=== PATIENT | female | born 1955 | race Caucasian/White ===

== ENCOUNTER 2019-04-29 03:49 | Observation (INO) | payer MEDICARE ==
--- NOTE | 2019-04-29 04:09 | Emergency Department Report ---
ED General Adult HPI - General Chief complaint: Neuro Symptoms/Deficit Stated complaint: BODY PAIN Time Seen by Provider: 04/29/19 04:07 Source: patient Mode of arrival: Ambulatory Limitations: No Limitations - History of Present Illness Initial comments: 63 y.o. female with a history of hypothyroidism and hypercholesterolemia presents stating that 1 hour ago she had the onset of a feeling that her left side was paralyzed. Patient states she has never had this sensation before. Patient states it feels primarily in her left upper and left lower extremity and her left face. Patient states upon arrival here to the emergency department she had resolution of the feeling of paralysis in her left upper and left lower extremity and primarily notes in her face. Patient denies any slurred speech. Patient is able to ambulate. Patient denies any prior history of CVA. Patient denies any head trauma. Patient eyes any chest pain headache or lighthea dedness. History obtained via [employer]. - Related Data Allergies Allergy/AdvReac Type Severity Reaction Status Date / Time No Known Allergies Allergy Unverified 04/29/19 04:02 ED Review of Systems ROS: Stated complaint: BODY PAIN Other details as noted in HPI Constitutional: denies: chills, fever Eyes: denies: eye pain, eye discharge, vision change ENT: denies: ear pain, throat pain Respiratory: denies: cough, shortness of breath, wheezing Cardiovascular: denies: chest pain, palpitations Endocrine: no symptoms reported Gastrointestinal: denies: abdominal pain, nausea, diarrhea Genitourinary: denies: urgency, dysuria, discharge Musculoskeletal: denies: back pain, joint swelling, arthralgia Skin: denies: rash, lesions Neurological: numbness Psychiatric: denies: anxiety, depression Hematological/Lymphatic: denies: easy bleeding, easy bruising ED Past Medical Hx - Past Medical History Previous Medical History?: Yes Additional medical history: "thyroid problem" - Surgical History Past Surgical History?: No - Social History Smoking Status: Never Smoker Substance Use Type: None ED Physical Exam - General Limitations: No Limitations General appearance: alert, other (Mildly uncomfortable;) - Head Head exam: Present: atraumatic, normocephalic - Eye Eye exam: Present: normal appearance - ENT ENT exam: Present: mucous membranes moist - Neck Neck exam: Present: normal inspection - Respiratory Respiratory exam: Present: normal lung sounds bilaterally. Absent: respiratory distress - Cardiovascular Cardiovascular Exam: Present: regular rate, normal rhythm. Absent: systolic murmur, diastolic murmur, rubs, gallop - GI/Abdominal GI/Abdominal exam: Present: soft, normal bowel sounds - Extremities Exam Extremities exam: Present: normal inspection - Back Exam Back exam: Present: normal inspection - Neurological Exam Neurological exam: Present: alert, oriented X3, CN II-XII intact. Absent: motor sensory deficit - Expanded Neurological Exam Expanded Patient oriented to: Present: person, place, time Speech: Present: fluid speech Cranial nerves: EOM's Intact: Normal Cerebellar function: Finger to Nose: Normal Sensory exam: Upper Extremity Light Touch: Normal, Lower Extremity Light Touch: Normal Motor strength exam: RUE: 5, LUE: 5, RLE: 5, LLE: 5 - Psychiatric Psychiatric exam: Present: normal affect, normal mood - Skin Skin exam: Present: warm, dry, intact, normal color. Absent: rash ED Course Vital Signs 04/29/19 04/29/19 03:53 05:02 Temperature 98.1 F Pulse Rate 70 87 Respiratory 18 17 Rate Blood Pressure 158/72 O2 Sat by Pulse 97 Oximetry ED Medical Decision Making - Lab Data Result diagrams: 04/29/19 04:17 04/29/19 04:17 - Medical Decision Making Patient to be admitted to the hospitalist service for continued management and treatment. Patient seen by teleneurologist and will be admitted for continued management. Patient per teleneurology is out of the window for TPA. Patient states that symptoms are starting to improve. - Differential Diagnosis CVA; TIA; Dehydration; ANemia; Electrolyte abnormality Critical Care Time: Yes Critical care time in (mins) excluding proc time.: 40 Critical care attestation.: If time is entered above; I have spent that time in minutes in the direct care of this critically ill patient, excluding procedure time. Critical care time includes time spent with physician consultation, bedside care, and frequent reassessments. ED Disposition Clinical Impression: TIA (transient ischemic attack) Disposition: OP ADMIT IP TO THIS HOSP Is pt being admited?: Yes Does the pt Need Aspirin: No (Patient received Aspirin while in the ER) Condition: Stable Referrals: THIERRY ARTEAGA MD [Primary Care Provider] - 3-5 Days Time of Disposition: 05:03 Print Language: GUAMANIAN
[2019-04-29 04:31] LABS: Basophils # (Auto) 0.1 K/mm3 (0.0-0.1); Basophils % (Auto) 0.9 % (0.0-1.8); Eosinophils # (Auto) 0.2 K/mm3 (0.0-0.4); Eosinophils % (Auto) 1.7 % (0.0-4.3); Hematocrit 41.3 % (30.3-42.9); Hemoglobin 13.6 gm/dl (10.1-14.3); Lymphocytes # (Auto) 3.4 K/mm3 (1.2-5.4); Lymphocytes % (Auto) 39.5 % (13.4-35.0); Mean Corpuscular HGB Conc 33 % (30-34); Mean Corpuscular Volume 84 fl (79-97); Monocytes # (Auto) 0.5 K/mm3 (0.0-0.8); Monocytes % (Auto) 5.5 % (0.0-7.3); Platelet Count 214 K/mm3 (140-440); Red Blood Count 4.91 M/mm3 (3.65-5.03); Red Cell Distribution Width 14.5 % (13.2-15.2)
[2019-04-29 04:43] LABS: INR 0.92 (0.87-1.13)
[2019-04-29 04:44] LABS: Partial Thromboplastin Time 35.2 Sec. (24.2-36.6)
--- NOTE | 2019-04-29 04:46 | Emergency Department Report ---
ED Neuro Deficit HPI - General Chief Complaint: Neuro Symptoms/Deficit Stated Complaint: BODY PAIN Time Seen by Provider: 04/29/19 04:07 Source: patient Mode of arrival: Ambulatory Limitations: No Limitations - History of Present Illness Initial Comments: [facility] Date of Service: 04/29/2019 04:13:33 Impression: RO Acute Ischemic Stroke Right Hemispheric Infarct Anterior Circulation Infarct Comments: Patient with hx of HLD, hypothyroidism who presents after waking up with numbnress on the left side, now only in her face and very mild, concerning for right thalamic or small lacunar infarct. Outside window for tpa, will need MRI and full stroke workup. Initiate asa, patient presently antiplatelet naive. Mechanism of Stroke: Small Vessel Disease Metrics: Last Known Well: 04/29/2019 23:00:00 [facility] Notification Time: 04/29/2019 04:12:27 Arrival Time: 04/29/2019 03:51:00 Stamp Time: 04/29/2019 04:13:33 Time First Login Attempt: 04/29/2019 04:18:56 Video Start Time: 04/29/2019 04:18:56 Symptoms: numbness of left side of her body NIHSS Start Assessment Time: 04/29/2019 04:34:22 Patient is not a candidate for tPA. Patient was not deemed candidate for tPA thrombolytics because of Last Well Known Above 4.[address] head showed no acute hemorrhage or acute core infarct. CT head was reviewed and results were: prelim no acute changes Clinical Presentation is not Suggestive of Large Vessel Occlusive Disease, Patient is not a Candidate for Thrombectomy ED Physician notified of diagnostic impression and management plan on 04/29/2019 04:43:00 Our recommendations are outlined below. Recommendations: Activate Stroke Protocol Admission/Order Set Stroke/Telemetry Floor Neuro Checks Bedside Swallow Eval DVT Prophylaxis IV Fluids, Normal Saline Head of Bed Below 30 Degrees Euglycemia and Avoid Hyperthermia (PRN Acetaminophen) Initiate Aspirin Recommended Scan: MRI Head Carotid Dopplers Echocardiogram - Transthoracic Echocardiogram Lipid Panel to Be Obtained, if Not Done in the Last Three Months Therapies: Physical Therapy, Occupational Therapy, Speech Therapy Assessment When Applicable Dysphaghia Screen: NPO Until Swallow Evaluation DVT prophylaxis: Choice of Primary Team Disposition: Follow up with Teleneurology Follow up Sign Out: Discussed with Emergency Department Provider History of Present Illness: Patient is a 63 year old Female. Patient was brought by private transportation with symptoms of numbness of left side of her body Patient is a pleasant [place] woman with history of hypothyroidism and HLD who presents for an evaluation of left arm and leg numbness. She woke up at 3am with these symptoms, now only in her face. She went to bed at 11pm and she felt fine. No prior hx of CVA, not on a/c or asa, no hx of Afib. nonsmoker. CT head showed no acute hemorrhage or acute core infarct. CT head was reviewed. Last seen normal was beyond 4.5 hours of presentation. There is no history of hemorrhagic complications or intracranial hemorrhage. There is no history of Recent Anticoagulants. There is no history of recent major surgery. There is no history of recent stroke. Examination: BP(158/72), Pulse(70), Blood Glucose(142) 1A: Level of Consciousness - Alert; keenly responsive + 0 1B: Ask Month and Age - Both Questions Right + 0 1C: Blink Eyes & Squeeze Hands - Performs Both Tasks + 0 2: Test Horizontal Extraocular Movements - Normal + 0 3: Test Visual Torres - No Visual Loss + 0 4: Test Facial Palsy (Use Grimace if Obtunded) - Normal symmetry + 0 5A: Test Left Arm Motor Drift - No Drift for 10 Seconds + 0 5B: Test Right Arm Motor Drift - No Drift for 10 Seconds + 0 6A: Test Left Leg Motor Drift - No Drift for 5 Seconds + 0 6B: Test Right Leg Motor Drift - No Drift for 5 Seconds + 0 7: Test Limb Ataxia (FNF/Heel-Leach) - No Ataxia + 0 8: Test Sensation - Mild-Moderate Loss: Less Sharp/More Dull + 1 9: Test Language/Aphasia - Normal; No aphasia + 0 10: Test Dysarthria - Normal + 0 11: Test Extinction/Inattention - No abnormality + 0 NIHSS Score: 1 Patient was informed the Neurology Consult would happen via TeleHealth consult by way of interactive audio and video telecommunications and consented to receiving care in this manner. Due to the immediate potential for life-threatening deterioration due to underlying acute neurologic illness, I spent 35 minutes providing critical care. This time includes time for face to face visit via telemedicine, review of medical records, imaging studies and discussion of findings with providers, the patient and/or family. Dr Cierra Avitia [facility] Case [id number] -: Sudden Location: left face, left arm, left leg - Related Data Allergies/Adverse Reactions: Allergies Allergy/AdvReac Type Severity Reaction Status Date / Time No Known Allergies Allergy Unverified 04/29/19 04:02 ED Review of Systems ROS: Stated complaint: BODY PAIN Other details as noted in HPI Constitutional: denies: chills, fever Eyes: denies: eye pain, eye discharge, vision change ENT: denies: ear pain, throat pain Respiratory: denies: cough, shortness of breath, wheezing Cardiovascular: denies: chest pain, palpitations Endocrine: no symptoms reported Gastrointestinal: denies: abdominal pain, nausea, diarrhea Genitourinary: denies: urgency, dysuria, discharge Musculoskeletal: denies: back pain, joint swelling, arthralgia Skin: denies: rash, lesions Neurological: numbness Psychiatric: denies: anxiety, depression Hematological/Lymphatic: denies: easy bleeding, easy bruising ED Past Medical Hx - Past Medical History Previous Medical History?: Yes Additional medical history: "thyroid problem" - Surgical History Past Surgical History?: No - Social History Smoking Status: Never Smoker Substance Use Type: None ED Neuro Physical Exam - General Limitations: No Limitations General appearance: alert, other (Mildly uncomfortable;) - Eye Eye exam: Present: normal appearance - ENT ENT exam: Present: normal exam ED Course Vital Signs 04/29/19 03:53 Temperature 98.1 F Pulse Rate 70 Respiratory 18 Rate Blood Pressure 158/72 O2 Sat by Pulse 97 Oximetry - Consultations Consultation #1: 04/29/19 04:43 [facility] Date of Service: 04/29/2019 00:02:15 Impression: RO Acute Ischemic Stroke Right Hemispheric Infarct recrudescence of prior cva vs new one Comments: Patient with prior hx of CVA who presents with exacerbation of lethargy, confusion and worsening left sided weakness. Onset >4.5 hrs, outside therapeutic window for tpa, will need CTA head and neck to rule out LVO. If positive KUSH. Will need admission for full stroke workup. Mechanism of Stroke: Possible Thromboembolic Possible Cardioembolic Small Vessel Disease Metrics: Last Known Well: 04/28/2019 10:00:00 [facility] Notification Time: 04/29/2019 00:01:33 Arrival Time: 04/29/2019 23:59:00 Stamp Time: 04/29/2019 00:02:15 Time First Login Attempt: 04/29/2019 00:08:37 Video Start Time: 04/29/2019 00:08:37 Symptoms: more nauseous and confused. NIHSS Start Assessment Time: 04/29/2019 00:20:09 Patient is not a candidate for tPA. Patient was not deemed candidate for tPA thrombolytics because of Last Well Known Above 4.[address] head showed no acute hemorrhage or acute core infarct. CT head was reviewed and results were: significant atrophy, right chronic occipital infarct. Lower Likelihood of Large Vessel Occlusion but Following Stat Studies are Recommended CTA Head and Neck. Advanced Imaging to be Reviewed by ED Provider and KUSH. ED Physician notified of diagnostic impression and management plan on 04/29/2019 00:21:27 Our recommendations are outlined below. Recommendations: Activate Stroke Protocol Admission/Order Set Stroke/Telemetry Floor Neuro Checks Bedside Swallow Eval DVT Prophylaxis IV Fluids, Normal Saline Head of Bed Below 30 Degrees Euglycemia and Avoid Hyperthermia (PRN Acetaminophen) continue asa MRI brain on admission NPO until swallow eval performed 2d echo Routine Consultation with Inhouse Neurology for Follow up Care Sign Out: Discussed with Emergency Department Provider History of Present Illness: Patient is a 86 year old Female. Patient was brought by private transportation with symptoms of more nauseous and confused. Patient was very drowsy and slept at 4pm and afterwards was very confused. She had a stroke in January 2019 which left her with residual left sided weakness. Today, symptoms exacerbated and unable to walk. CT head showed no acute hemorrhage or acute core infarct. CT head was reviewed. Last seen normal was beyond 4.5 hours of presentation. There is no history of hemorrhagic complications or intracranial hemorrhage. There is no history of Recent Anticoagulants. There is no history of recent major surgery. There is no history of recent stroke. Examination: BP(160/70), Pulse(70), 1A: Level of Consciousness - Arouses to minor stimulation + 1 1B: Ask Month and Age - 1 Question Right + 1 1C: Blink Eyes & Squeeze Hands - Performs Both Tasks + 0 2: Test Horizontal Extraocular Movements - Normal + 0 3: Test Visual Torres - No Visual Loss + 0 4: Test Facial Palsy (Use Grimace if Obtunded) - Minor paralysis (flat naso labial fold, smile asymmetry) + 1 5A: Test Left Arm Motor Drift - No Drift for 10 Seconds + 0 5B: Test Right Arm Motor Drift - No Drift for 10 Seconds + 0 6A: Test Left Leg Motor Drift - No Effort Against [place] + 3 6B: Test Right Leg Motor Drift - Some Effort Against [place] + 2 7: Test Limb Ataxia (FNF/Heel-Leach) - No Ataxia + 0 8: Test Sensation - Normal; No sensory loss + 0 9: Test Language/Aphasia - Normal; No aphasia + 0 10: Test Dysarthria - Mild-Moderate Dysarthria: Slurring but can be understood + 1 11: Test Extinction/Inattention - No abnormality + 0 NIHSS Score: 9 Patient was informed the Neurology Consult would happen via TeleHealth consult by way of interactive audio and video telecommunications and consented to receiving care in this manner. Due to the immediate potential for life-threatening deterioration due to underlying acute neurologic illness, I spent 35 minutes providing critical care. This time includes time for face to face visit via telemedicine, review of m edical records, imaging studies and discussion of findings with providers, the patient and/or family. Dr Cierra Avitia [facility] Case [id number] - Lab Data Result diagrams: 04/29/19 04:17 Lab Results 04/29/19 Range/Units 04:17 WBC 8.7 (4.5-11.0) K/mm3 RBC 4.91 (3.65-5.03) M/mm3 Hgb 13.6 (10.1-14.3) gm/dl Hct 41.3 (30.3-42.9) % MCV 84 (79-97) fl MCH 28 (28-32) pg MCHC 33 (30-34) % RDW 14.5 (13.2-15.2) % Plt Count 214 (140-440) K/mm3 Lymph % (Auto) 39.5 H (13.4-35.0) % Imperial % (Auto) 5.5 (0.0-7.3) % Eos % (Auto) 1.7 (0.0-4.3) % Baso % (Auto) 0.9 (0.0-1.8) % Lymph # 3.4 (1.2-5.4) K/mm3 Imperial # 0.5 (0.0-0.8) K/mm3 Eos # 0.2 (0.0-0.4) K/mm3 Baso # 0.1 (0.0-0.1) K/mm3 Seg Neutrophils % 52.4 (40.0-70.0) % Seg Neutrophils # 4.5 (1.8-7.7) K/mm3 Critical care attestation.: If time is entered above; I have spent that time in minutes in the direct care of this critically ill patient, excluding procedure time. ED Disposition Is pt being admited?: Yes Condition: Stable Referrals: THIERRY ARTEAGA MD [Primary Care Provider] - 3-5 Days
[2019-04-29 04:47] LABS: BUN/Creatinine Ratio 40; Blood Urea Nitrogen 28 mg/dL (7-17); Calcium 9.6 mg/dL (8.4-10.2); Hemolysis Index 8
[2019-04-29] MEDS ORDERED: ASPIRIN EC 325 MG TAB PO ONE (04:51)
--- NOTE | 2019-04-29 04:52 | Cat Scan Report ---
CT HEAD WITHOUT CONTRAST INDICATION: Stroke symptoms, left-sided weakness. TECHNIQUE: All CT scans at this location are performed using CT dose reduction for ALARA by means of automated e xposure control. COMPARISON: None available. FINDINGS: HEMORRHAGE: None. EXTRA-AXIAL SPACES: Normal in size and morphology for the patient's age. VENTRICULAR SYSTEM: Normal in size and morphology for the patient's age. BRAIN PARENCHYMA: No acute findings. MIDLINE SHIFT OR HERNIATION: None. ORBITS: Normal as visualized. SOFT TISSUES OF HEAD: Normal. CALVARIUM: Normal. VISUALIZED PARANASAL SINUSES AND MASTOID AIR CELLS: Clear. ADDITIONAL FINDINGS: None. IMPRESSION: 1. No acute intracranial abnormality. Signer Name: Hayden Dallas MD Signed: 04/29/2019 4:48 AM Workstation Name: [id number]
--- NOTE | 2019-04-29 05:04 | XRay Report ---
CHEST 1 VIEW INDICATION: chst paihn. COMPARISON: None. FINDINGS: Support devices: None. Heart: Normal. Lungs/Pleura: No acute pulmonary or pleural findings. IMPRESSION: 1. No acute findings. Signer Name: Hayden Dallas MD Signed: 04/29/2019 5:00 AM Workstation Name: [id number]
[2019-04-29] MEDS ORDERED: ACETAMINOPHEN 325 MG TAB PO PRN (05:28)
[2019-04-29] MEDS ORDERED: MAGNESIUM HYDROXIDE (MOM) ORAL LIQD UDC PO PRN (05:28)
[2019-04-29] MEDS ORDERED: ONDANSETRON 4 MG/2 ML INJ IV PRN (05:28)
[2019-04-29] MEDS ORDERED: hydrALAZINE 20 MG/1 ML INJ IV PRN (05:31)
--- NOTE | 2019-04-29 06:22 | History and Physical Report ---
History of Present Illness History of present illness: 63-year-old Portuguese speaking woman with a history of hypothyroidism, hyperlipidemia was brought to the emergency room for evaluation. 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 Patient states that she developed left side paresthesia including her face. Her symptoms have improved, she has no history of hypertension. Denies any weakness, slurred speech patient will be admitted for TIA work-up Review Of Systems: Constitutional: no weight loss, fever, chills Ears, eyes, nose, mouth and throat: no nasal congestion, no nasal discharge, no sinus pressure, blurry vision, diplopia Neck: No neck pain or rigidity. Cardiovascular: No palpitations, chest pain Respiratory: No shortness of breath, cough Gastrointestinal: No hematochezia, abdominal pain Genitourinary : no dysuria, frequency Musculoskeletal: no muscle ache , joint pain Integumentary: no rash, no pruritis Neurological: no focal weakness Endocrine: no cold or heat intolerance, no polyuria or polydipsia Hematologic/Lymphatic: no easy bruising, no easy bleeding, no gland swelling Allergic/Immunologic: no urticaria, no angioedema. PAST MEDICAL HISTORY: hypothyroidism, hyperlipidemia PAST SURGICAL HISTORY: Excision of breast mass which was benign SOCIAL HISTORY: Denies alcohol, tobacco, drugs FAMILY HISTORY: Hypertension Medications and Allergies Allergies Allergy/AdvReac Type Severity Reaction Status Date / Time No Known Allergies Allergy Unverified 04/29/19 04:02 Active Meds: Active Medications Acetaminophen (Tylenol) 650 mg PO Q4H PRN PRN Reason: Pain, Mild (1-3) Aspirin (Aspirin) 325 mg PO QDAY GABRIEL Bisacodyl (Dulcolax) 10 mg MN QDAY PRN PRN Reason: Constipation Enoxaparin Sodium (Enoxaparin) 40 mg SUB-Q QAM GABRIEL Hydralazine HCl (Apresoline) 5 mg IV Q6H PRN PRN Reason: Hypertension Magnesium Hydroxide (Milk Of Magnesia) 30 ml PO Q4H PRN PRN Reason: Constipation Ondansetron HCl (Zofran) 4 mg IV Q8H PRN PRN Reason: Nausea And Vomiting Pravastatin Sodium (Pravachol) 40 mg PO QHS [facility] Sodium Chloride (Sodium Chloride Flush Syringe 10 Ml) 10 ml IV PRN PRN PRN Reason: LINE FLUSH Exam - Physical Exam Narrative exam: Gen. appearance: Patient lying in bed, no apparent distress HEENT: Normocephalic, atraumatic, pupils equally round and reactive to light, extraocular movement intact, and no sclericterus,. No JVD or thyromegaly or nodule,neck supple, no carotid bruit ,mucous membranes moist, no exudate or erythema Heart: S1, S2, regular rate and rhythm Lungs: Clear bilaterally, breathing comfortable Abdomen: Positive bowel sounds, nontender, nondistended, no organomegaly Extremity: no edema, cyanosis, clubbing Skin: No rash, nodules, warm, dry Neuro: speech is fluent, cranial nerves II to XII intact, motor and sensory intact - Constitutional Vitals: Temp Pulse Resp BP Pulse Ox 98.1 F 84 15 156/89 97 04/29/19 03:53 04/29/19 06:01 04/29/19 06:01 04/29/19 06:01 04/29/19 06:01 Results - Labs CBC & Chem 7: 04/29/19 04:17 04/29/19 04:17 Labs: Abnormal lab results 04/29/19 04/29/19 04/29/19 Range/Units 04:17 04:17 04:40 Lymph % (Auto) 39.5 H (13.4-35.0) % BUN 28 H (7-17) mg/dL Glucose 160 H (65-100) mg/dL POC Glucose 145 H (70-105) - Imaging and Cardiology CT Scan - head: report reviewed Assessment and Plan Assessment TIA Obtain MRI of the head, carotid Doppler, echo Do neuro checks, swallow screen Start aspirin, statin IV hydralazine as needed for blood pressure control Consult neurology, PT, OT Hyperlipidemia Continue statin Hypothyroidism Continue outpatient medication DVT prophylaxis
--- NOTE | 2019-04-29 09:27 | Vascular Lab Report ---
TECHNICAL DATA: Imaging was performed from the base of the neck to the skull base using duplex sonography and color-f low imaging with emphasis on the carotid and vertebral arterial systems. RIGHT CAROTID ARTERY: The right internal carotid artery, right external carotid, and right common carotid artery all well i kalin and patent. Mild atherosclerotic plaque present at the carotid bifurcation. All measurements are in centimeters per second Right common carotid artery peak systolic velocity 68.8 Right internal carotid artery peak systolic velocity 95.1 Right internal carotid artery end diastolic velocity 47.6 Right internal carotid artery/right common carotid artery ratio 1.38 Vertebral artery flow is antegrade. LEFT CAROTID ARTERY The left internal carotid artery, left external carotid, and left common carotid artery all well imag ed and patent. Mild atherosclerotic plaque present at the carotid bifurcation. Left common carotid artery peak systolic velocity 83.1 Left internal carotid artery peak systolic velocity 91.2 Left internal carotid artery end diastolic velocity 41.4 Left internal carotid artery/right common carotid artery ratio 1.10 Normal antegrade flow of the vertebral arteries. Please see worksheet for all velocities. IMPRESSION: 1. Sonographic NASCET Index This study proposed the incorporation of distal ICA flow velocity information on the conventional car otid Doppler study improving the diagnostic accuracy of PSV 1. Internal carotid arteries demonstrate <15% stenosis: * deceleration spectral broadening with a peak systolic velocity (PSV) <125 cm/s . 2. Normal common carotid arteries. 3. Normal external carotid arteries. 4. Antegrade flow both vertebral arteries. Sonographic NASCET Index This study proposed the incorporation of distal ICA flow velocity information on the conventional car otid Doppler study improving the diagnostic accuracy of PSV 1. * <15% stenosis: * deceleration spectral broadening with a peak systolic velocity (PSV) <125 cm/s * 16-49% stenosis: * pansystolic spectral broadening with a PSV <125 cm/s * 50-69% stenosis: * pansystolic spectral broadening with a PSV of >125 cm/s * and * end diastolic velocity (EDV) <110 cm/s or ICA/CCA PSV ratio >2 but <4 * 70-79% stenosis: * pansystolic spectral broadening with PSV >270 cm/s * or * EDV >110 cm/s * or * ICA/CCA PSV ratio >4 * 80-99% stenosis: EDV >140 cm/s * complete occlusion: no flow; terminal thump Signer Name: Hiro Webber MD Signed: 04/29/2019 9:23 AM Workstation Name: [id number]
--- NOTE | 2019-04-29 09:33 | Magnetic Resonance Report ---
MRI BRAIN 04/29/2019 INDICATION / CLINICAL INFORMATION: MAIN: stroke, LT SIDED PARESTHESIA. TECHNIQUE: Multiplanar, multisequence MR images of the brain were obtained. COMPARISON: None available. FINDINGS: BRAIN / INTRACRANIAL CONTENTS: Unenhanced MR images of the brain demonstrate no evidence of acute int racranial abnormality. Ventricles and sulci are normal in size and shape. There is no evidence of acute or chronic ischemic injury. The brain parenchyma is very well preserved for age. There is no evidence of hemorrhage or mass. There are no abnormal extra-axial fluid collections. EXTRACRANIAL: Unremarkable CRANIOCERVICAL JUNCTION: No significant abnormality. VASCULAR FLOW-VOIDS: No significant abnormality. IMPRESSION: Negative unenhanced MRI of the brain. Signer Name: Marcos Rosario MD Signed: 04/29/2019 9:29 AM Workstation Name: [id number]
--- NOTE | 2019-04-29 10:29 | Progress Note ---
Assessment and Plan Assessment and plan: Patient was admitted with left face left upper and lower extremity numbness, symptoms completely resolved, possible TIA --TIA Obtain MRI of the head, carotid Doppler, echo Do neuro checks, swallow screen Start aspirin, statin IV hydralazine as needed for blood pressure control Neurology consult, PT, OT Work-up so far; CT head; no acute abnormality MRI brain; no acute abnormalities cxr; no acute findings Carotid Doppler; normal carotid arteries Echo; EF 50-55% no shunt --Hyperlipidemia Continue statin --Hypothyroidism Continue outpatient medication --DVT prophylaxis; Lovenox Follow PT OT Follow pending work-up Possible discharge home tomorrow if stable Home health as needed Plan of care reviewed with the patient, her And patient's nurse [employer] Sales Assistant recommendations noted and appreciated Advance care 35 minutes History Interval history: Patient seen and examined at bedside this morning History physical reviewed Neuro work-up is in progress Patient feels much better No weakness or numbness Speech clear Hospitalist Physical - Constitutional Vitals: Temp Pulse Resp BP Pulse Ox 98.6 F 91 H 19 129/78 99 04/29/19 07:13 04/29/19 08:00 04/29/19 08:00 04/29/19 08:00 04/29/19 08:00 General appearance: Present: no acute distress, well-nourished, other (Alert awake oriented) - EENT Eyes: Present: PERRL, EOM intact - Neck Neck: Present: supple, normal ROM - Respiratory Respiratory effort: normal Respiratory: bilateral: diminished, negative: rales, rhonchi, wheezing - Cardiovascular Rhythm: regular Heart Sounds: Present: S1 & S2 - Extremities Extremities: no ischemia, No edema - Abdominal General gastrointestinal: soft, non-tender, non-distended, normal bowel sounds - Integumentary Integumentary: Present: clear, warm - Psychiatric Psychiatric: appropriate mood/affect, cooperative - Neurologic Neurologic: moves all extremities Results - Labs CBC & Chem 7: 04/29/19 04:17 04/29/19 04:17 Labs: Laboratory Last Values WBC 8.7 K/mm3 (4.5-11.0) 04/29/19 04:17 RBC 4.91 M/mm3 (3.65-5.03) 04/29/19 04:17 Hgb 13.6 gm/dl (10.1-14.3) 04/29/19 04:17 Hct 41.3 % (30.3-42.9) 04/29/19 04:17 MCV 84 fl (79-97) 04/29/19 04:17 MCH 28 pg (28-32) 04/29/19 04:17 MCHC 33 % (30-34) 04/29/19 04:17 RDW 14.5 % (13.2-15.2) 04/29/19 04:17 Plt Count 214 K/mm3 (140-440) 04/29/19 04:17 Lymph % (Auto) 39.5 % (13.4-35.0) H 04/29/19 04:17 Pondera % (Auto) 5.5 % (0.0-7.3) 04/29/19 04:17 Eos % (Auto) 1.7 % (0.0-4.3) 04/29/19 04:17 Baso % (Auto) 0.9 % (0.0-1.8) 04/29/19 04:17 Lymph # 3.4 K/mm3 (1.2-5.4) 04/29/19 04:17 Pondera # 0.5 K/mm3 (0.0-0.8) 04/29/19 04:17 Eos # 0.2 K/mm3 (0.0-0.4) 04/29/19 04:17 Baso # 0.1 K/mm3 (0.0-0.1) 04/29/19 04:17 Seg Neutrophils % 52.4 % (40.0-70.0) 04/29/19 04:17 Seg Neutrophils # 4.5 K/mm3 (1.8-7.7) 04/29/19 04:17 PT 12.4 Sec. (12.2-14.9) 04/29/19 04:17 INR 0.92 (0.87-1.13) 04/29/19 04:17 APTT 35.2 Sec. (24.2-36.6) 04/29/19 04:17 Thrombin Time 16.3 Sec. (15.1-19.6) 04/29/19 04:17 Sodium 141 mmol/L (137-145) 04/29/19 04:17 Potassium 4.4 mmol/L (3.6-5.0) 04/29/19 04:17 Chloride 102.5 mmol/L (98-107) 04/29/19 04:17 Carbon Dioxide 23 mmol/L (22-30) 04/29/19 04:17 Anion Gap 20 mmol/L 04/29/19 04:17 BUN 28 mg/dL (7-17) H 04/29/19 04:17 Creatinine 0.7 mg/dL (0.7-1.2) 04/29/19 04:17 Estimated GFR > 60 ml/min 04/29/19 04:17 BUN/Creatinine Ratio 40 % 04/29/19 04:17 Glucose 160 mg/dL (65-100) H 04/29/19 04:17 POC Glucose 145 (70-105) H 04/29/19 04:40 Calcium 9.6 mg/dL (8.4-10.2) 04/29/19 04:17 Troponin T < 0.010 ng/mL (0.00-0.029) 04/29/19 04:17 Active Medications - Current Medications Current Medications: Generic Name Dose Route Start Last Admin Trade Name Freq PRN Reason Stop Dose Admin Acetaminophen 650 mg 04/29/19 05:28 Tylenol PO Q4H PRN Pain, Mild (1-3) Aspirin 325 mg 04/29/19 10:00 Aspirin PO QDAY [facility] Bisacodyl 10 mg 04/29/19 05:28 Dulcolax [place] QDAY PRN Constipation Enoxaparin Sodium 40 mg 04/29/19 10:00 Enoxaparin SUB-Q QAM [facility] Hydralazine HCl 5 mg 04/29/19 05:31 Apresoline IV Q6H PRN Hypertension Magnesium Hydroxide 30 ml 04/29/19 05:28 Milk Of Magnesia PO Q4H PRN Constipation Ondansetron HCl 4 mg 04/29/19 05:28 Zofran IV Q8H PRN Nausea And Vomiting Pravastatin Sodium 40 mg 04/29/19 22:00 Pravachol PO QHS [facility] Sodium Chloride 10 ml 04/29/19 05:28 Sodium Chloride Flush Syringe 10 Ml IV PRN PRN LINE FLUSH
[2019-04-29] MEDS: ENOXAPARIN 40 MG/0.4 ML INJ SUB-Q SCH (12:08)
[2019-04-29] MEDS: ASPIRIN 325 MG TAB PO SCH (12:08)
[2019-04-29 12:16] LABS: Chol/HDL Ratio 2.73 %
--- NOTE | 2019-04-29 13:31 | Consultation ---
History of Present Illness Consult date: 04/29/19 Reason for Consult: Left-sided numbness Chief complaint: Left-sided numbness History of present illness: Patient is a 63-year-old woman with a history of hyperlipidemia and hypothyroidism. She was last known well last night before going to sleep around 10 PM. She woke up this morning, around 5 AM, and at that time noted that she was experiencing numbness of the left face, arm, and leg. Patient was then brought to [facility] for further evaluation. After arrival to the ER, patient had improvement in symptoms, however at that time was still having left face paresthesias. Now, when examined approximately 6 to 7 hours after symptom onset, symptoms had completely resolved. Patient states that she was previously taking aspirin daily, however this was stopped about 1 month ago. Past History Past Medical History: other (Hypothyroidism, hyperlipidemia) Social history: lives with family Family history: no significant family history Medications and Allergies Allergies Allergy/AdvReac Type Severity Reaction Status Date / Time No Known Allergies Allergy Unverified 04/29/19 04:02 Active Meds: Active Medications Acetaminophen (Tylenol) 650 mg PO Q4H PRN PRN Reason: Pain, Mild (1-3) Aspirin (Aspirin) 325 mg PO QDAY [facility] Last Admin: 04/29/19 12:08 Dose: 325 mg Documented by: Bisacodyl (Dulcolax) 10 mg [place] QDAY PRN PRN Reason: Constipation Enoxaparin Sodium (Enoxaparin) 40 mg SUB-Q QAM [facility] Last Admin: 04/29/19 12:08 Dose: 40 mg Documented by: Hydralazine HCl (Apresoline) 5 mg IV Q6H PRN PRN Reason: Hypertension Magnesium Hydroxide (Milk Of Magnesia) 30 ml PO Q4H PRN PRN Reason: Constipation Ondansetron HCl (Zofran) 4 mg IV Q8H PRN PRN Reason: Nausea And Vomiting Pravastatin Sodium (Pravachol) 40 mg PO QHS [facility] Sodium Chloride (Sodium Chloride Flush Syringe 10 Ml) 10 ml IV PRN PRN PRN Reason: LINE FLUSH Review of Systems All systems: negative Neurological: numbness Physical Examination - Vital Signs Vital Signs: Vital Signs Temp Pulse Resp BP Pulse Ox 98.1 F 70 18 158/72 97 04/29/19 03:53 04/29/19 03:53 04/29/19 03:53 04/29/19 03:53 04/29/19 03:53 - Physical Exam Narrative exam: Patient is alert, awake, oriented x4, follows complex commands. No dysarthria or aphasia noted. PERRL, EOMI, VFF, tongue midline, bilaterally intact to LT, no facial weakness noted. 5/5 strength in all extremities. Bilaterally intact light touch. Bilaterally intact to FTN and HTS. 2+ reflexes throughout. - Constitutional General appearance: comfortable - EENT EENT: Present: ATNC, PERRL, mucous membranes moist, hearing intact, vision intact - Respiratory Respiratory: Present: lungs clear, normal breath sounds - Cardiovascular Cardiovascular: Present: regular rate, normal S1, normal S2 Extremities: Present: no clubbing, cyanosis, no inflammation - Gastrointestinal Gastrointestinal: Present: normoactive bowel sounds, soft, non-tender - Integumentary Integumentary: Present: normal - Musculoskeletal Musculoskeletal: Present: no fluid collection, no pain - Psychiatric Psychiatric: Present: mood/affect appropriate - Level of Consciousness 1a. Level of Consciousness: alert/keenly responsive - LOC Questions 1b. LOC Questions: answers both correctly - LOC Command 1c. LOC Commands: performs tasks correctly - Best Gaze 2. Best Gaze: normal - Visual 3. Visual: no visual loss - Facial Palsy 4. Facial Palsy: normal symmetrical movement - Motor Arm 5a. Motor Arm Left: no drift 5b. Motor Arm Right: no drift - Motor Leg 6a. Motor Leg Left: no drift 6b. Motor Leg Right: no drift - Limb Ataxia 7. Limb Ataxia: absent - Sensory 8. Sensory: normal - Best Language 9. Best Language: no aphasia - Dysarthria 10. Dysarthria: normal - Extinction and Inattention 11. Extinction/Inattention: no abnormality - Scoring Total Score: 0 Stroke Severity: No Stroke Symptoms Results - Laboratory Findings CBC and BMP: 04/29/19 04:17 04/29/19 04:17 Abnormal Lab Findings: Abnormal Labs 04/29/19 04/29/19 04/29/19 04:17 04:17 04:40 Lymph % (Auto) 39.5 H BUN 28 H Glucose 160 H POC Glucose 145 H HDL Cholesterol 04/29/19 10:47 Lymph % (Auto) BUN Glucose POC Glucose HDL Cholesterol 68 H Assessment and Plan Patient is a 63-year-old woman with a history of hyperlipidemia and hypothyroidism, who presents with numbness of left face/arm/leg. According the patient's clinical findings, it is likely that she has had a TIA. Plan: 1. TIA: - MRI brain: No acute abnormality - CTA head/neck: Pending - CT head: No acute abnormality - Echo: EF 50 to 55%, LA normal size, bubble study negative. - CUS: No significant stenosis. - Cont. ASA - Cont. statin. LDL goal <70. - Telemetry monitoring while in house - PT/OT/ST - DVT Ppx: Recommend lovenox 2. Hypertension: - Recommend BP goal of normotension, as no acute infarct noted on MRI. - Will continue to monitor patient. Thank you for allowing me to take part in the care of this patient. Rick Madden MD Neurology
--- NOTE | 2019-04-29 20:06 | Cat Scan Report ---
CTA head with intravenous contrast CLINICAL HISTORY: TIA TECHNIQUE: 0.625 mm thick contiguous axial scans were obtained from the skull base to the skull vertex during ra pid bolus administration of intravenous contrast material. Multiplanar reconstructions were produced in the coronal and sagittal planes. In addition 3 plane MIP instructions were produced and reviewed f or this report. The axial source images and reconstructed images were reviewed for this report. All CT scans at this location are performed using CT dose reduction for ALARA by means of automated e xposure control. FINDINGS: The caliber of the intracranial vessels is normal throughout. There is no indication of intracranial stenosis or large vessel occlusion. There is no indication of vasculitis. There is no evidence of aneurysm or other vascular malformation. The dural venous sinuses are well demonstrated on this study. No indication of dural sinus thrombosis . IMPRESSION: No abnormality on CTA head. CONTRAST DOSE REPORT: Omnipaque 350: 100 ml administered intravenously. Signer Name: Sohail Tripp MD Signed: 04/29/2019 8:02 PM Workstation Name: [id number]
--- NOTE | 2019-04-29 20:11 | Cat Scan Report ---
CTA neck without and with intravenous contrast material CLINICAL HISTORY: TIA TECHNIQUE: Following acquisition of a timing bolus 0.625 mm thick contiguous axial scans were obtained from aort ic arch to the skull base during rapid bolus intravenous contrast infusion. In addition to evaluation of axial source images multiplanar reconstructions were produced and reviewed for this report. 3 zenaida ne MIP reconstructions were produced and reviewed. FINDINGS: Thoracic aorta: No abnormalities are seen along the visualized course of the thoracic aorta. Origins of the great vessels have normal appearance. Brachiocephalic artery, right subclavian artery and left subclavian artery all have an unremarkable appearance. Right carotid artery: Right common carotid artery, right carotid bifurcation and cervical portions of the right internal carotid arteries all have an unremarkable appearance. Left carotid artery: Left common carotid artery, left carotid bifurcation and cervical segments of th e left internal carotid artery all have a normal appearance. There is no indication of atheroscleroti c disease. Posterior circulation: Normal and symmetrical vertebral arteries are present. There is no indication of stenosis along the course of the vertebral arteries. Both vertebral arteries contribute to the bas ilar artery origin. The basilar artery has an unremarkable appearance. The degree of stenosis, if any, is determined utilizing NASCET like criteria. In this case there is no indication of hemodynamically significant stenosis at the carotid bifurcations or elsewhere.. Evaluation of the nonvascular soft tissue structures reveal no abnormality. There is no indication of cervical lymphadenopathy. No abnormalities are seen along the course of the airway. Visualized porti ons of the parotid glands and the submandibular salivary glands have a normal appearance. Thyroid gla nd has a normal appearance. Evaluation of the lung apices reveals no evidence of lung nodule or infil trate. Evaluation of the cervical spine revealed no significant abnormalities. Graph incidental note is made of what appears to be a cosmetic implant along the bridge of the nose. IMPRESSION: 1. No abnormalities are identified on CTA neck. Contrast dose report: Omnipaque 350: 100 ml, administered intravenously All CT examinations performed at this facility utilize modulated dose reduction, iterative reconstruc tion or weight-based dosing, as appropriate, to obtain a radiation dose which is as low as can reason ably be achieved. Signer Name: Sohail Tripp MD Signed: 04/29/2019 8:06 PM Workstation Name: [id number]
[2019-04-29] MEDS ORDERED: PRAVASTATIN 40 MG TAB PO SCH (22:00)
[2019-04-30] MEDS ORDERED: LEVOTHYROXINE 50 MCG TAB PO SCH (06:00)
[2019-04-30] MEDS: ASPIRIN 325 MG TAB PO SCH (10:08)
[2019-04-30] MEDS: ENOXAPARIN 40 MG/0.4 ML INJ SUB-Q SCH (10:08)
--- NOTE | 2019-04-30 11:43 | Progress Note ---
Assessment and Plan Patient is a 63-year-old woman with a history of hyperlipidemia and hypothyroidism, who presents with numbness of left face/arm/leg. According the patient's clinical findings, it is likely that she has had a TIA. Plan: 1. TIA: - MRI brain: No acute abnormality - CTA head/neck: No significant stenosis. - CT head: No acute abnormality - Echo: EF 50 to 55%, LA normal size, bubble study negative. - CUS: No significant stenosis. - Recommend dual antiplatelet therapy with aspirin 81 mg daily and Plavix 75 mg daily for 30 days, after which Plavix can be stopped. Discussed risks and benefits of dual antiplatelet therapy with patient, and patient agreed to take this. - Cont. statin. LDL goal <70. - Telemetry monitoring while in house - PT/OT/ST - DVT Ppx: Recommend lovenox 2. Hypertension: - Recommend BP goal of normotension, as no acute infarct noted on MRI. -Recommend outpatient follow-up with neurology in 3 to 4 weeks. -Will sign off, as I am not covering neurology service over the weekend. Please consult neurologist covering the service over the weekend for further neurologic monitoring and management. Thank you for allowing me to take part in the care of this patient. Rick Madden MD Neurology Subjective Date of service: 04/30/19 Principal diagnosis: TIA Interval history: No acute events overnight. Objective - Exam Narrative Exam: Patient is alert, awake, oriented x4, follows complex commands. No dysarthria or aphasia noted. PERRL, EOMI, VFF, tongue midline, bilaterally intact to LT, no facial weakness noted. 5/5 strength in all extremities. Bilaterally intact light touch. Bilaterally intact to FTN and HTS. 2+ reflexes throughout. - Vital Sign Vital Signs - 12hr 04/30/19 04/30/19 04/30/19 00:00 00:39 04:39 Temperature 97.6 F 97.7 F Pulse Rate 90 61 60 Respiratory 16 16 Rate Blood Pressure 104/52 104/60 O2 Sat by Pulse 90 97 Oximetry 04/30/19 04/30/19 08:00 08:15 Temperature 98.3 F Pulse Rate 86 90 Respiratory 18 16 Rate Blood Pressure 99/58 O2 Sat by Pulse 97 Oximetry - General Apperance Constitutional: comfortable - EENT EENT: ATNC, PERRL, mucous membranes moist, hearing intact, vision intact - Respiratory Respiratory: lungs clear, normal breath sounds - Cardiovascular Cardiovascular: regular rate, normal S1, normal S2 Extremities: no clubbing, cyanosis, no inflammation - Gastrointestinal Gastrointestinal: normoactive bowel sounds, soft, non-tender - Integumentary Integumentary: normal - Musculoskeletal Musculoskeletal: no fluid collection, no pain - Psychiatric Psychiatric: mood/affect appropriate - Laboratory Findings CBC and BMP: 04/29/19 04:17 04/29/19 04:17 Abnormal Lab Findings: Abnormal Labs 04/29/19 04/29/19 04/29/19 04:17 04:17 04:40 Lymph % (Auto) 39.5 H BUN 28 H Glucose 160 H POC Glucose 145 H HDL Cholesterol 04/29/19 10:47 Lymph % (Auto) BUN Glucose POC Glucose HDL Cholesterol 68 H
[2019-04-30 11:44] VITALS: BP 99/63
[2019-04-30] MEDS ORDERED: PNEUMOCOCCAL 23 Valent 0.5 ML VIAL IM ONE (12:00)
--- NOTE | 2019-04-30 14:45 | Discharge Summary ---
Providers - Providers Date of Admission: 04/29/19 05:27 Date of discharge: 04/30/19 Attending physician: LORRAINE NANCE 04/29/19 Consult to Physician [CONS] Routine Comment: Consulting Provider: KALEB ANDREWS Physician Instructions: Reason For Exam: tia 04/29/19 05:28 Occupational Therapy Evaluate and Treat [CONS] Routine Comment: Reason For Exam: Neuro deficits Physical Therapy Evaluation and Treat [CONS] Routine Comment: Reason For Exam: Neuro deficits Primary care physician: THIERRY ARTEAGA Hospitalization Condition: Stable Disposition: DC-01 TO HOME OR SELFCARE Time spent for discharge: 32 min Core Measure Documentation - Palliative Care Palliative Care/ Comfort Measures: Not Applicable - Core Measures Any of the following diagnoses?: none Exam - Constitutional Vitals: Temp Pulse Resp BP Pulse Ox 98.0 F 83 18 99/63 96 04/30/19 11:41 04/30/19 11:41 04/30/19 11:41 04/30/19 11:41 04/30/19 11:41 Plan Activity: advance as tolerated, fall precautions Diet: other (cardiac diet) Special Instructions: physical therapy Additional Instructions: Outpatient physical therapy Follow up with: THIERRY ARTEAGA MD [Primary Care Provider] - 3-5 Days ZBIGNIEW HARRY MD [Staff Physician] - 7 Days Prescriptions: Aspirin EC [Halfprin EC] 81 mg PO QDAY #30 tablet AtorvaSTATin [Lipitor] 40 mg PO QHS #30 tablet Clopidogrel [Plavix] 75 mg PO QDAY #30 tablet
[2019-05-01] MEDS ORDERED: ASPIRIN EC 81 MG TAB PO SCH (10:00)
[2019-05-01] MEDS ORDERED: CLOPIDOGREL 75 MG TAB PO SCH (10:00)
== END 2019-04-30 16:38 | disposition home or self-care (01) ==
LOC: ED 03:49 → SUATTDRO 03:49 → 4A 05:27
PROVIDERS: ADMIT Internal Medicine; ATTEND Internal Medicine
DX: G45.9 Transient cerebral ischemic attack, unspecified (principal); I10 Essential (primary) hypertension; E03.9 Hypothyroidism, unspecified; E78.5 Hyperlipidemia, unspecified; Z79.82 Long term (current) use of aspirin
CPT/HCPCS: 36415; 70450; 70496; 70498; 70551; 71045; 80048; 80061; 82962; 84484; 85025; 85610; 85670; 85730; 90471; 90732; 93005; 93010; 93306; 93880; 96372; 97110; 97161; 97165; 99291; A9270; G0378; J1650; Q9967

== ENCOUNTER 2019-10-14 07:56 | Emergency (ER) | payer MEDICARE ==
[2019-10-14] MEDS ORDERED: ASPIRIN 325 MG TAB PO ONE (07:58)
[2019-10-14 08:23] LABS: Hemoglobin 13.8 gm/dl (10.1-14.3); Mean Corpuscular HGB Conc 33 % (30-34); Mean Corpuscular Volume 84 fl (79-97); Platelet Count 207 K/mm3 (140-440); Red Blood Count 4.98 M/mm3 (3.65-5.03); Red Cell Distribution Width 14.4 % (13.2-15.2)
[2019-10-14 08:37] LABS: Blood Urea Nitrogen 17 mg/dL (7-17); Calcium 9.4 mg/dL (8.4-10.2); Hemolysis Index 9
[2019-10-14 08:39] LABS: BUN/Creatinine Ratio 24
--- NOTE | 2019-10-14 08:47 | XRay Report ---
CHEST 2 VIEWS INDICATION: Chest Pain. COMPARISON: 04/29/2019 FINDINGS: Support devices: None. Heart: Within normal limits. Lungs/pleura: No acute air space or interstitial disease. No pneumothorax. Additional findings: None. IMPRESSION: No acute findings. Signer Name: Zion Montesinos Jr, MD Signed: 10/14/2019 8:42 AM Workstation Name: [id number]
[2019-10-14 10:40] LABS: Platelet Estimate Consistent w Auto; RBC Morphology Normal; Total Cells Counted 100
[2019-10-14] MEDS ORDERED: METOCLOPRAMIDE 10 MG/2 ML INJ IV ONE (13:51)
[2019-10-14] MEDS ORDERED: MECLIZINE 25 MG TAB PO ONE (13:51)
--- NOTE | 2019-10-14 14:26 | Cat Scan Report ---
. CT head/brain wo con INDICATION / CLINICAL INFORMATION: 64 years Female; dizzyness, headache. TECHNIQUE: Routine CT head without contrast. All CT scans at this location are performed using CT dos e reduction for ALARA by means of automated exposure control. COMPARISON: The study is compared to the previous CT of 04/29/2019. FINDINGS: BRAIN / INTRACRANIAL CONTENTS: The brain appears to demonstrate appropriate attenuation for age witho ut significant interval change from the previous CT. The ventricular system remains appropriate in si ze and configuration. There is no clear CT evidence of acute intracranial hemorrhage or significant m ass effect. ORBITS: No significant abnormality of visualized orbits. SINUSES / MASTOIDS: No significant abnormality in the visualized paranasal sinuses or mastoid air harjeet ls. CRANIOCERVICAL JUNCTION: No significant abnormality. ADDITIONAL FINDINGS: None. IMPRESSION: 1. There is no CT evidence of acute intracranial process. Signer Name: Evelio Moody MD Signed: 10/14/2019 2:22 PM Workstation Name: [id number]
--- NOTE | 2019-10-14 14:49 | Emergency Department Report ---
ED General Adult HPI - General Chief complaint: Dizziness Stated complaint: cp Time Seen by Provider: 10/14/19 13:21 Source: patient Mode of arrival: Ambulatory Limitations: No Limitations - History of Present Illness Severity scale (0 -10): 0 - Related Data Home Medications Medication Instructions Recorded Confirmed Last Taken Levothyroxine [Synthroid] 50 mcg PO QAM 04/29/19 04/29/19 04/28/19 Previous Rx's Medication Instructions Recorded Last Taken Type Aspirin EC [Halfprin EC] 81 mg PO QDAY #30 tablet 04/30/19 Unknown Rx AtorvaSTATin [Lipitor] 40 mg PO QHS #30 tablet 04/30/19 Unknown Rx Clopidogrel [Plavix] 75 mg PO QDAY #30 tablet 04/30/19 Unknown Rx Allergies Allergy/AdvReac Type Severity Reaction Status Date / Time No Known Allergies Allergy Unverified 04/29/19 04:02 ED Review of Systems ROS: Stated complaint: cp Other details as noted in HPI [facility] Stat Consult Date of Service: 10/14/2019 13:59:36 Impression: dizziness Comments/Sign-Out: her exam is nonfocal . the differential diagnosis would include inner ear pathology vs posterior circulation stroke . i will suggest admission for further tesing - mri brain , carotids , echo . CT HEAD: Showed No Acute Hemorrhage or Acute Core Infarct Metrics: [facility] Notification Time: 10/14/2019 13:58:28 Stamp Time: 10/14/2019 13:59:36 Callback Response Time: 10/14/2019 14:02:37 Video Start Time: 10/14/2019 14:05:00 Video End Time: 10/14/2019 14:33:56 Our recommendations are outlined below. Recommendations: Antiplatelet Therapy PRN meclizine Imaging Studies: MRI Head Carotid Dopplers Echocardiogram - Transthoracic Echocardiogram Therapies: Physical Therapy, Occupational Therapy, Speech Therapy Assessment When Applicable Disposition: Neurology Follow Up Recommended Sign Out: Discussed with Emergency Department Provider Chief Complaint: dizziness History of Present Illness: Patient is a 64 year old Female. 54-year-old female With past medical history significant for hypertension, hyperlipidemia and TIA. She was last known normal when she went to bed last night. She woke up feeling dizzy. The dizziness is described as a spinning sensation which gets worse with movement and relieved with sitting still. She denies having any tinnitus or hearing problems. There is no history of any cough cold or fever. She denies having any facial asymmetry, blurry vision or speech difficulty. There is no weakness or numbness on one side of the body. Her CAT scan is negative for bleed. Her NIH stroke scale is zero. There are no signs of large vessel occlusion. She needs to be admitted to have a brain MRI, carotids and echo. The differential diagnosis would include posterior circulation stroke versus inner ear pathology. Examination: 1A: Level of Consciousness - Alert; keenly responsive + 0 1B: Ask Month and Age - Both Questions Right + 0 1C: Blink Eyes & Squeeze Hands - Performs Both Tasks + 0 2: Test Horizontal Extraocular Movements - Normal + 0 3: Test Visual Torres - No Visual Loss + 0 4: Test Facial Palsy (Use Grimace if Obtunded) - Normal symmetry + 0 5A: Test Left Arm Motor Drift - No Drift for 10 Seconds + 0 5B: Test Right Arm Motor Drift - No Drift for 10 Seconds + 0 6A: Test Left Leg Motor Drift - No Drift for 5 Seconds + 0 6B: Test Right Leg Motor Drift - No Drift for 5 Seconds + 0 7: Test Limb Ataxia (FNF/Heel-Leach) - No Ataxia + 0 8: Test Sensation - Normal; No sensory loss + 0 9: Test Language/Aphasia - Normal; No aphasia + 0 10: Test Dysarthria - Normal + 0 11: Test Extinction/Inattention - No abnormality + 0 NIHSS Score: 0 Patient/Family was informed the Neurology Consult would happen via TeleHealth consult by way of interactive audio and video telecommunications and consented to receiving care in this manner. Due to the immediate potential for life-threatening deterioration due to underlying acute neurologic illness, I spent 35 minutes providing critical care. This time includes time for face to face visit via telemedicine, review of medical records, imaging studies and discussion of findings with providers, the patient and/or family. Dr Bev Head [facility] Case [id number] ED Past Medical Hx - Past Medical History Previous Medical History?: Yes Additional medical history: "thyroid problem" - Surgical History Past Surgical History?: No - Social History Smoking Status: Never Smoker Substance Use Type: None - Medications Home Medications: Home Medications Medication Instructions Recorded Confirmed Last Taken Type Levothyroxine [Synthroid] 50 mcg PO QAM 04/29/19 04/29/19 04/28/19 History Aspirin EC [Halfprin EC] 81 mg PO QDAY #30 tablet 04/30/19 Unknown Rx AtorvaSTATin [Lipitor] 40 mg PO QHS #30 tablet 04/30/19 Unknown Rx Clopidogrel [Plavix] 75 mg PO QDAY #30 tablet 04/30/19 Unknown Rx ED Physical Exam - General Limitations: No Limitations ED Course Vital Signs 10/14/19 10/14/19 07:59 13:18 Temperature 98.1 F 97.9 F Pulse Rate 87 81 Respiratory 16 14 Rate Blood Pressure 124/88 Blood Pressure 123/79 [Left] O2 Sat by Pulse 98 98 Oximetry ED Medical Decision Making - Lab Data Result diagrams: 10/14/19 08:08 10/14/19 08:08 Critical care attestation.: If time is entered above; I have spent that time in minutes in the direct care of this critically ill patient, excluding procedure time. ED Disposition Clinical Impression: Dizziness Disposition: DC-09 OP ADMIT IP TO THIS HOSP Is pt being admited?: Yes Does the pt Need Aspirin: No Condition: Fair Referrals: PRIMARY CARE,MD [Primary Care Provider] - 3-5 Days
--- NOTE | 2019-10-14 14:56 | Emergency Department Report ---
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 The headache started a few days ago. She associates it with "cold symptoms." No fever, neck pain, denies chest pain, abdominal pain or shortness of breath. No tinnitus, no change in auditory acuity, no ear pain. Went to bed last night with no neurologic symptoms. Woke up this morning with a complaint of feeling dizzy. Describes the dizziness as a sensation of room spinning. It is intermittent, but worsens when she looks down. She is worried that she may have had another stroke. Headache does not have exacerbating or relieving factors that she is aware of. Dizziness exacerbated by the aforementioned. Dizziness is improved with laying down. -: Gradual Location: head Severity scale (0 -10): 0 Quality: other Consistency: other Improves with: other Worsens with: other Associated Symptoms: other - Related Data Home Medications Medication Instructions Recorded Confirmed Last Taken Levothyroxine [Synthroid] 50 mcg PO QAM 04/29/19 04/29/19 04/28/19 Previous Rx's Medication Instructions Recorded Last Taken Type Aspirin EC [Halfprin EC] 81 mg PO QDAY #30 tablet 04/30/19 Unknown Rx AtorvaSTATin [Lipitor] 40 mg PO QHS #30 tablet 04/30/19 Unknown Rx Clopidogrel [Plavix] 75 mg PO QDAY #30 tablet 04/30/19 Unknown Rx Meclizine [Antivert] 12.5 mg PO BID PRN #14 tablet 10/14/19 Unknown Rx Allergies Allergy/AdvReac Type Severity Reaction Status Date / Time No Known Allergies Allergy Unverified 04/29/19 04:02 ED Review of Systems ROS: Stated complaint: cp Other details as noted in HPI Constitutional: denies: fever Eyes: denies: eye discharge, vision change ENT: congestion. denies: ear pain, throat pain, hearing loss, epistaxis Respiratory: denies: cough Cardiovascular: denies: chest pain Gastrointestinal: denies: abdominal pain, nausea, vomiting Neurological: headache, weakness, vertigo. denies: numbness, paresthesias ED Past Medical Hx - Past Medical History Previous Medical History?: Yes Additional medical history: "thyroid problem" - Surgical History Past Surgical History?: No - Social History Smoking Status: Never Smoker Substance Use Type: None - Medications Home Medications: Home Medications Medication Instructions Recorded Confirmed Last Taken Type Levothyroxine [Synthroid] 50 mcg PO QAM 04/29/19 04/29/19 04/28/19 History Aspirin EC [Halfprin EC] 81 mg PO QDAY #30 tablet 04/30/19 Unknown Rx AtorvaSTATin [Lipitor] 40 mg PO QHS #30 tablet 04/30/19 Unknown Rx Clopidogrel [Plavix] 75 mg PO QDAY #30 tablet 04/30/19 Unknown Rx Meclizine [Antivert] 12.5 mg PO BID PRN #14 tablet 10/14/19 Unknown Rx ED Physical Exam - General Limitations: Language Barrier General appearance: alert, in no apparent distress - Head Head exam: Present: atraumatic, normocephalic - Eye Eye exam: Present: normal appearance, PERRL, EOMI, other (Visual acuity is intact to finger counting and color perception at a close distance). Absent: nystagmus - ENT ENT exam: Present: normal exam, normal orophraynx, mucous membranes moist, normal external ear exam - Neck Neck exam: Present: normal inspection, full ROM. Absent: tenderness, meningismus - Respiratory Respiratory exam: Present: normal lung sounds bilaterally. Absent: respiratory distress - Cardiovascular Cardiovascular Exam: Present: regular rate, normal rhythm, normal heart sounds. Absent: bradycardia, tachycardia, irregular rhythm, systolic murmur, diastolic murmur, rubs, gallop - GI/Abdominal GI/Abdominal exam: Present: soft. Absent: distended, tenderness, guarding, rebound, rigid, pulsatile mass - Extremities Exam Extremities exam: Present: normal inspection, full ROM, other (2+ pulses noted in the bilateral upper and lower extremities. There is no palpable cord. negative Homans sign. Muscular compartments are soft. The pelvis is stable.). Absent: pedal edema, calf tenderness - Back Exam Back exam: Present: normal inspection, full ROM. Absent: tenderness, CVA tenderness (R), CVA tenderness (L), paraspinal tenderness, vertebral tenderness - Neurological Exam Neurological exam: Present: alert, normal gait, other (There is no facial droop. The tongue is midline. Extraocular movements are intact bilaterally. There is 5 out of 5 strength in bilateral upper and lower extremities. Sensation is intact to light touch bilateral upper and lower extremities. There is no past- pointing. There is no pronator drift. There is normal [id number]. There is a normal gait.) - Psychiatric Psychiatric exam: Present: flat affect - Skin Skin exam: Present: warm, dry, intact, normal color. Absent: rash ED Course Vital Signs 10/14/19 10/14/19 07:59 13:18 Temperature 98.1 F 97.9 F Pulse Rate 87 81 Respiratory 16 14 Rate Blood Pressure 124/88 Blood Pressure 123/79 [Left] O2 Sat by Pulse 98 98 Oximetry - Reevaluation(s) Reevaluation #1: 10/14/19 15:[address] Lisa Carlson Reevaluation #2: 10/14/19 15:44 The patient was evaluated in the emergency department for symptoms described in the history of present illness. He/she was evaluated in the context of the global COVID-19 pandemic, which necessitated consideration that the patient might be at risk for infection with the virus that causes COVID-19. Institutional protocols and algorithms that pertain to the evaluation of patients at risk for COVID-19 are in a state of rapid change based on information released by regulatory bodies including the CDC and federal and state organizations. These policies and algorithms were followed during the patient's care in the emergency department. Please note that these policies, procedures and recommendations changed on a rapid basis. ED Medical Decision Making - Lab Data Result diagrams: 10/14/19 08:08 10/14/19 08:08 Vital Signs 10/14/19 10/14/19 07:59 13:18 Temperature 98.1 F 97.9 F Pulse Rate 87 81 Respiratory 16 14 Rate Blood Pressure 124/88 Blood Pressure 123/79 [Left] O2 Sat by Pulse 98 98 Oximetry Lab Results 10/14/19 10/14/19 10/14/19 Range/Units 08:08 08:08 11:00 WBC 6.9 (4.5-11.0) K/mm3 RBC 4.98 (3.65-5.03) M/mm3 Hgb 13.8 (10.1-14.3) gm/dl Hct 42.0 (30.3-42.9) % MCV 84 (79-97) fl MCH 28 (28-32) pg MCHC 33 (30-34) % RDW 14.4 (13.2-15.2) % Plt Count 207 (140-440) K/mm3 [place] % (Auto) [employer] Director Add Manual Diff Complete Total Counted 100 Seg Neutrophils % [employer] Director Seg Neuts % (Manual) 45.0 (40.0-70.0) % Band Neutrophils % 0 % Lymphocytes % (Manual) 46.0 H (13.4-35.0) % Reactive Lymphs % (Man) 0 % Monocytes % (Manual) 5.0 (0.0-7.3) % Eosinophils % (Manual) 3.0 (0.0-4.3) % Basophils % (Manual) 1.0 (0.0-1.8) % Metamyelocytes % 0 % Myelocytes % 0 % Promyelocytes % 0 % Blast Cells % 0 % Nucleated RBC % Not Reportable Seg Neutrophils # Man 3.1 (1.8-7.7) K/mm3 Band Neutrophils # 0.0 K/mm3 Lymphocytes # (Manual) 3.2 (1.2-5.4) K/mm3 Abs React Lymphs (Man) 0.0 K/mm3 Monocytes # (Manual) 0.3 (0.0-0.8) K/mm3 Eosinophils # (Manual) 0.2 (0.0-0.4) K/mm3 Basophils # (Manual) 0.1 (0.0-0.1) K/mm3 Metamyelocytes # 0.0 K/mm3 Myelocytes # 0.0 K/mm3 Promyelocytes # 0.0 K/mm3 Blast Cells # 0.0 K/mm3 WBC Morphology Not Reportable Hypersegmented Neuts Not Reportable Hyposegmented Neuts Not Reportable Hypogranular Neuts Not Reportable Smudge Cells Not Reportable Toxic Granulation Not Reportable Toxic Vacuolation Not Reportable Dohle Bodies Not Reportable Pelger-Huet Anomaly Not Reportable Z[place]ka Rods Not Reportable Platelet Estimate Consistent w auto Clumped Platelets Not Reportable Plt Clumps, EDTA Not Reportable Large Platelets Not Reportable Giant Platelets Not Reportable Platelet Satelliting Not Reportable Plt Morphology Comment Not Reportable RBC Morphology Normal Dimorphic RBCs Not Reportable Polychromasia Not Reportable Hypochromasia Not Reportable Poikilocytosis Not Reportable Anisocytosis Not Reportable Microcytosis Not Reportable Macrocytosis Not Reportable Spherocytes Not Reportable Pappenheimer Bodies Not Reportable Sickle Cells Not Reportable Target Cells Not Reportable Tear Drop Cells Not Reportable Ovalocytes Not Reportable Helmet Cells Not Reportable [place] Bodies Not Reportable [place] Rings Not Reportable [place] Cells Not Reportable Bite Cells Not Reportable Crenated Cell Not Reportable Elliptocytes Not Reportable Acanthocytes (Spur) Not Reportable Rouleaux Not Reportable Hemoglobin C Crystals Not Reportable Schistocytes Not Reportable Malaria parasites Not Reportable Chris Bodies Not Reportable Hem Pathologist Commnt No Sodium 139 (137-145) mmol/L Potassium 4.8 (3.6-5.0) mmol/L Chloride 99.9 (98-107) mmol/L Carbon Dioxide 28 (22-30) mmol/L Anion Gap 16 mmol/L BUN 17 (7-17) mg/dL Creatinine 0.7 (0.6-1.2) mg/dL Estimated GFR > 60 ml/min BUN/Creatinine Ratio 24 % Glucose 190 H (65-100) mg/dL Calcium 9.4 (8.4-10.2) mg/dL Troponin T < 0.010 < 0.010 (0.00-0.029) ng/mL - Radiology Data Radiology results: report reviewed, image reviewed X-ray of the chest is negative for acute disease. Noncontrast CT scan of the brain is negative for acute disease. - Medical Decision Making Differential diagnosis, include but not limited to: Central vertigo, peripheral vertigo, migraine headache, stroke \\Assessment and plan:\\\\ 64-year-old female with multiple vascular risk factors, reported history of stroke, presenting with a complaint of headache, and dizziness. Describes the dizziness as vertiginous in nature, worsens with certain ocular positions. There is no nystagmus on my exam. Her otologic exam is unremarkable. She has a GCS of 15, with an NIH score of 0. Her examination at this time is not consistent with a large vessel occlusion. She woke up with symptoms, last known well time more than 4.5 hours prior to initial presentation, and she has an NIH score of 0, therefore, she is not a TPA candidate. We discussed with neurology on-call, Dr. Head, who personally evaluated the patient, admission is recommended to exclude central causes of vertigo. Critical care attestation.: If time is entered above; I have spent that time in minutes in the direct care of this critically ill patient, excluding procedure time. ED Disposition Clinical Impression: Dizziness Disposition: DC-09 OP ADMIT IP TO THIS HOSP Is pt being admited?: Yes Does the pt Need Aspirin: Yes Condition: Fair Prescriptions: Meclizine [Antivert] 12.5 mg PO BID PRN #14 tablet PRN Reason: Vertigo Referrals: PRIMARY CARE, [Primary Care Provider] - 3-5 Days
[2019-10-14] MEDS ORDERED: ASPIRIN 81 MG TAB CHEW PO ONE (14:57)
--- NOTE | 2019-10-14 15:16 | Event Note ---
Date: 10/14/19 Patient with dizziness Able to walk No cerebellar signs No stroke Acute labyrinthitis Patient discharged home on meclizine 12.5 twice daily follow-up with primary care
[2019-10-14 16:09] VITALS: BP 122/78
== END 2019-10-14 16:11 | disposition admitted as inpatient to this hospital (09) ==
LOC: ED 07:56
DX: R42 Dizziness and giddiness (principal); Z79.899 Other long term (current) drug therapy
CPT/HCPCS: 36415; 70450; 71046; 80048; 82550; 83735; 84484; 85007; 85025; 93005